=== PATIENT | female | born 1970 | race Caucasian/White ===

== ENCOUNTER 2016-11-18 11:56 | Outpatient (CLI) | payer OTHER ==
[~2016-11-18] VITALS: Ht 180.3 cm; Wt 97.5 kg
[~2016-11-18 11:56] MED LIST: /CLOT10TR TOP; AFRI0.0511; ALBU83IN INH; BETAMETHASONE TOP; FIBE625T PO; FLON0.054; LISI2.5T3 PO; MIRA33504 PO; PRED10TA2 OR; REMICADE IV; RIBO100C PO; SING4GRA PO; VITA1TAB27 PO; ZYRT10CA PO
[2016-11-18] MEDS ORDERED: NS 1,000 ML IV SCH (12:15)
[2016-11-18] MEDS ORDERED: diphenhydrAMINE 25 MG CAP PO ONE (12:15)
[2016-11-18] MEDS ORDERED: inFLIXimab INJECTION 500 MG in NS 200 ML IV ONE (12:30)
== END 2016-11-18 14:55 | disposition home or self-care (01) ==
LOC: M INFU 11:56
PROVIDERS: ATTEND Internal Medicine Gastroenterology
DX: K50.90 Crohn's disease, unspecified, without complications (principal)
CPT/HCPCS: 96413; 96415; J1745

== ENCOUNTER → 2016-12-19 | Outpatient (CLI) | payer OTHER ==
[~2016-12-19] VITALS: Ht 180.3 cm; Wt 95.7 kg
[~2016-12-19] MED LIST changes: +ALBU17IN INH; +FLON1SPR; +LIDOCAINE 2% INJ 100 MG/5 ML SDV (FOR ANES.) As Ordered ONE; +NS 1,000 ML IV SCH; +PROPOFOL 200 MG/20 ML VIAL As Ordered ONE; +SING10TA32 PO; +VITA100054 PO
--- NOTE | 2016-12-19 14:59 | ROOR ---
Patient Name: Olga Lidia Young Procedure Date: 12/19/2016 2:39 PM Date of : 1970 Age: 46 Room: [id number] Gender: Female Note Status: Finalized Procedure: Colonoscopy Indications: Personal history of Crohn's disease, Severe perianal crohns with history of perianal stenosis/fistula/fissure. doing well on remicade. has constipation Providers: Micheal CHOW MD Referring MD: DAILY RAMIREZ MD Requesting Provider: Medicines: Monitored Anesthesia Care Complications: No immediate complications. Procedure: Pre-Anesthesia Assessment: - The heart rate, respiratory rate, oxygen saturations, blood pressure, adequacy of pulmonary ventilation, and response to care were monitored throughout the procedure. The Colonoscope was introduced through the anus and advanced to 5 cm into the ileum. The colonoscopy was performed without difficulty. The patient tolerated the procedure well. The quality of the bowel preparation was adequate. Findings: The digital rectal exam findings include anal stricture. Pertinent negatives include no palpable rectal lesions. Inflammation characterized by shallow ulcerations was found. The anus was spared. This was mild in severity, and when compared to previous examinations, the findings are in remission. Biopsies were taken with a cold forceps for histology. The exam was otherwise normal throughout the examined colon. The terminal ileum appeared normal. Impression: - Mild anal fibrotic stenosis found on digital rectal exam. - Small circumferential shallow erosion at anal canal seen best in retroflexed view. - Overall essentially quiescent Crohn's disease with small area of Inflammation/erosion was found. This was mild in severity. The findings are in remission compared to previous examinations. Biopsied. - The colon is otherwise normal. - The examined portion of the ileum was normal. Recommendation: - Miralax 1 capful (17 grams) in 8 ounces of water PO BID indefinitely. - Continue present medications. Micheal Chow MD Micheal CHOW MD 12/19/2016 2:59:24 PM This report has been signed electronically. Number of Addenda: 0 Note Initiated On: 12/19/2016 2:39 PM Estimated Blood Loss: Estimated blood loss: none.
[2016-12-19 15:20] VITALS: BP 156/85
== END | disposition home or self-care (01) ==
LOC: M OPP 12:20
PROVIDERS: ATTEND Internal Medicine Gastroenterology
DX: K50.918 Crohn's disease, unspecified, with other complication (principal); K62.4 Stenosis of anus and rectum; K62.6 Ulcer of anus and rectum; K59.00 Constipation, unspecified; R01.1 Cardiac murmur, unspecified; G43.909 Migraine, unspecified, not intractable, without status migrainosus; J45.909 Unspecified asthma, uncomplicated; Z79.51 Long term (current) use of inhaled steroids; Z79.899 Other long term (current) drug therapy; Z80.9 Family history of malignant neoplasm, unspecified

== ENCOUNTER → 2016-12-30 | Outpatient (REF) | payer OTHER ==
[~2016-12-30] MED LIST changes: -LIDOCAINE 2% INJ 100 MG/5 ML SDV (FOR ANES.) As Ordered ONE; -NS 1,000 ML IV SCH; -PROPOFOL 200 MG/20 ML VIAL As Ordered ONE
== END ==
LOC: M SFHCWAGY 10:34
PROVIDERS: ATTEND Nurse Practitioner Women's Health
DX: Z12.31 Encounter for screening mammogram for malignant neoplasm of breast (principal); Z12.4 Encounter for screening for malignant neoplasm of cervix

== ENCOUNTER → 2016-12-30 | Outpatient (CLI) | payer OTHER ==
--- NOTE | 2016-12-30 11:36 | REPMRS ---
Patient History The patient states she had a clinical breast exam in 12/2016. Family history of prostate cancer in paternal grandfather at age 50 or over and colorectal cancer in paternal cousin at age 35. Digital Woman Screen Mammo: December 30, 2016 - Exam #: [id number] Bilateral CC and MLO view(s) were taken. Technologist: Susana Menezes, Technologist Prior study comparison: January 01, 2016, digital woman screen mammo performed at [facility]. December 28, 2014, digital woman screen mammo performed at [facility]. FINDINGS: The breast tissue is heterogeneously dense. This may lower the sensitivity of mammography. There has been no change in the appearance of the mammogram from the prior studies. There is a moderate amount of residual fibroglandular tissue which is fairly symmetric. There is no interval development of dominant mass, areas of architectural distortion, or clustered microcalcification typical of malignancy. ASSESSMENT: BI-RADS/ACR category 1 mammogram. Negative. Recommendation Routine screening mammogram in 1 year (for women over age 40). This mammogram was interpreted with the aid of an FDA-approved computer-aided dectection system. Electronically Signed By: Binh Humphrey MD 12/30/16 [id number]
== END ==
LOC: M WHC 10:08
PROVIDERS: ATTEND Nurse Practitioner Women's Health
DX: Z12.31 Encounter for screening mammogram for malignant neoplasm of breast (principal)

== ENCOUNTER 2017-01-13 11:21 | Outpatient (CLI) | payer OTHER ==
[~2017-01-13] VITALS: Ht 180.3 cm; Wt 97.5 kg
[~2017-01-13 11:21] MED LIST changes: +diphenhydrAMINE 25 MG CAP PO SCH
[2017-01-13] MEDS ORDERED: NS 1,000 ML IV SCH (11:30)
[2017-01-13] MEDS ORDERED: inFLIXimab INJECTION 500 MG in NS 200 ML IV ONE (12:00)
== END 2017-01-13 14:45 | disposition home or self-care (01) ==
LOC: M INFU 11:21
PROVIDERS: ATTEND Internal Medicine Gastroenterology
DX: K50.90 Crohn's disease, unspecified, without complications (principal); J45.909 Unspecified asthma, uncomplicated; Z79.899 Other long term (current) drug therapy
CPT/HCPCS: 96413; 96415; J1745

== ENCOUNTER 2017-03-13 11:45 | Outpatient (CLI) | payer OTHER ==
[2017-03-13] MEDS ORDERED: NS 1,000 ML IV SCH (12:15)
[2017-03-13] MEDS ORDERED: inFLIXimab INJECTION 500 MG in NS 200 ML IV ONE (12:30)
== END 2017-03-13 14:45 | disposition home or self-care (01) ==
LOC: M INFU 11:45
PROVIDERS: ATTEND Internal Medicine Gastroenterology
DX: K50.90 Crohn's disease, unspecified, without complications (principal); Z79.899 Other long term (current) drug therapy

== ENCOUNTER 2017-05-05 11:39 | Outpatient (CLI) | payer OTHER ==
[~2017-05-05] VITALS: Ht 180.3 cm; Wt 97.0 kg
[2017-05-05] MEDS ORDERED: NS 1,000 ML IV SCH (12:00)
[2017-05-05] MEDS ORDERED: inFLIXimab INJECTION 500 MG in NS 200 ML IV ONE (13:00)
== END 2017-05-05 14:45 | disposition home or self-care (01) ==
LOC: M INFU 11:39
PROVIDERS: ATTEND Internal Medicine Gastroenterology
DX: K50.90 Crohn's disease, unspecified, without complications (principal); Z79.899 Other long term (current) drug therapy

== ENCOUNTER 2017-07-14 11:46 | Outpatient (CLI) | payer OTHER ==
[~2017-07-14] VITALS: Ht 180.3 cm; Wt 97.0 kg
[~2017-07-14 11:46] MED LIST changes: +NS 1,000 ML IV SCH; +diphenhydrAMINE 25 MG CAP PO ONE; -diphenhydrAMINE 25 MG CAP PO SCH; +inFLIXimab INJECTION 500 MG in NS 200 ML IV ONE
[2017-07-14] MEDS ORDERED: inFLIXimab INJECTION 500 MG in NS 200 ML IV ONE (12:00)
[2017-07-14] MEDS ORDERED: diphenhydrAMINE 25 MG CAP PO ONE (12:00)
[2017-07-14] MEDS ORDERED: NS 1,000 ML IV SCH (12:00)
== END 2017-07-14 14:30 | disposition home or self-care (01) ==
LOC: M INFU 11:46
PROVIDERS: ATTEND Internal Medicine Gastroenterology
DX: K50.90 Crohn's disease, unspecified, without complications (principal); Z79.899 Other long term (current) drug therapy
CPT/HCPCS: 96413; 96415; J1745

== ENCOUNTER 2017-09-08 07:14 | Outpatient (CLI) | payer OTHER ==
[~2017-09-08] VITALS: Ht 180.3 cm; Wt 97.0 kg
[~2017-09-08 07:14] MED LIST changes: -NS 1,000 ML IV SCH; -diphenhydrAMINE 25 MG CAP PO ONE; -inFLIXimab INJECTION 500 MG in NS 200 ML IV ONE
[2017-09-08] MEDS ORDERED: NS 1,000 ML IV SCH (08:00)
[2017-09-08] MEDS ORDERED: inFLIXimab INJECTION 500 MG in NS 200 ML IV ONE (08:00)
[2017-09-08] MEDS ORDERED: diphenhydrAMINE 25 MG CAP PO ONE (08:00)
== END 2017-09-08 11:00 | disposition home or self-care (01) ==
LOC: M INFU 07:14
PROVIDERS: ATTEND Internal Medicine Gastroenterology
DX: K50.90 Crohn's disease, unspecified, without complications (principal); Z79.899 Other long term (current) drug therapy
CPT/HCPCS: 96413; 96415; J1745

== ENCOUNTER 2017-11-03 11:38 | Outpatient (CLI) | payer OTHER ==
[2017-11-03] MEDS: NS 1,000 ML IV (12:00)
[2017-11-03] MEDS: diphenhydrAMINE 25 MG CAP PO (12:00)
[2017-11-03] MEDS: inFLIXimab INJECTION 500 MG in NS 200 ML IV (12:19)
== END 2017-11-03 14:45 | disposition home or self-care (01) ==
LOC: M INFU 11:38
DX: K50.90 Crohn's disease, unspecified, without complications (principal); Z79.899 Other long term (current) drug therapy
CPT/HCPCS: 96413

== ENCOUNTER → 2017-11-27 | Outpatient (REF) | payer OTHER | LOC: M SFHCPLAZ 13:47 | DX: R73.03 Prediabetes (principal); E78.2 Mixed hyperlipidemia; I10 Essential (primary) hypertension ==

== ENCOUNTER → 2017-11-29 | Outpatient (CLI) | payer OTHER ==
[2017-11-29 12:06] LABS: ANION GAP 11 MEQ/L (8-16); BLOOD UREA NITROGEN 16 MG/DL (7-18); CALCIUM LEVEL 8.8 MG/DL (8.5-10.1); CARBON DIOXIDE LEVEL 27 MEQ/L (21-32); CHLORIDE LEVEL 103 MEQ/L (98-107); CHOLESTEROL LEVEL 229 MG/DL (<200); CHOLESTEROL RISK RATIO 2.862 (<5); CREATININE FOR GFR 0.85 MG/DL (0.55-1.30); GLOMERULAR FILTRATION RATE > 60.0 (>58); GLUCOSE, FASTING 105 MG/DL (70-100); HDL CHOLESTEROL 80 MG/DL (>40); LDL CHOLESTEROL 128.4 MG/DL (<100); NON-HDL-C 149 MG/DL; POTASSIUM SERUM 4.4 MEQ/L (3.5-5.1); SODIUM LEVEL 141 MEQ/L (136-145); TRIGLYCERIDES LEVEL 103 MG/DL (<150)
[2017-11-29 12:17] LABS: ESTIMATED AVERAGE GLUCOSE 123 MG/DL (60-110); HEMOGLOBIN A1c 5.9 %
== END ==
LOC: M WUC 08:05
DX: R73.03 Prediabetes (principal); E78.2 Mixed hyperlipidemia; I10 Essential (primary) hypertension
CPT/HCPCS: 83036

== ENCOUNTER 2017-12-29 12:09 | Outpatient (CLI) | payer OTHER ==
[2017-12-29] MEDS: ACETAMINOPHEN TAB 650MG DOSE (2X325MG) PO (12:30)
[2017-12-29] MEDS: diphenhydrAMINE 25 MG CAP PO (12:37)
[2017-12-29] MEDS: INFLIXIMAB BIOSIMILAR 500 MG in NS 200 ML IV (12:58)
[2017-12-29] MEDS: NS 1,000 ML IV (12:58)
== END 2017-12-29 15:30 | disposition home or self-care (01) ==
LOC: M INFU 12:09
DX: K50.90 Crohn's disease, unspecified, without complications (principal); J45.909 Unspecified asthma, uncomplicated; Z79.899 Other long term (current) drug therapy
CPT/HCPCS: Q5102

== ENCOUNTER → 2018-01-01 | Outpatient (CLI) | payer OTHER | LOC: M WHC 10:38 | DX: Z12.31 Encounter for screening mammogram for malignant neoplasm of breast (principal) | CPT/HCPCS: 77067 ==

== ENCOUNTER → 2018-01-15 | Outpatient (REF) | payer OTHER ==
[2018-01-15 13:30] LABS: INFLUENZA A AMPLIFICATION NEGATIVE (NEGATIVE); INFLUENZA B AMPLIFICATION NEGATIVE (NEGATIVE)
== END ==
LOC: M LAB REF 12:44
DX: J11.1 Influenza due to unidentified influenza virus with other respiratory manifestations (principal)

== ENCOUNTER 2018-02-23 12:16 | Outpatient (CLI) | payer OTHER ==
[2018-02-23] MEDS: ACETAMINOPHEN TAB 650MG DOSE (2X325MG) PO (12:42)
[2018-02-23] MEDS: diphenhydrAMINE 25 MG CAP PO (12:42)
[2018-02-23] MEDS: FILTER 1.2 MICRON (ADULT TPN/MANNITOL/REMICADE) XX (12:42)
[2018-02-23] MEDS: NS 1,000 ML IV (12:43)
[2018-02-23] MEDS: INFLIXIMAB BIOSIMILAR 500 MG in NS 200 ML IV (13:26)
== END 2018-02-23 15:55 | disposition home or self-care (01) ==
LOC: M INFU 12:16
DX: K50.90 Crohn's disease, unspecified, without complications (principal); J45.909 Unspecified asthma, uncomplicated; Z79.899 Other long term (current) drug therapy
CPT/HCPCS: Q5103

== ENCOUNTER 2018-04-20 12:16 | Outpatient (CLI) | payer OTHER ==
[2018-04-20] MEDS: diphenhydrAMINE 25 MG CAP PO (12:30)
[2018-04-20] MEDS ORDERED: NS 1,000 ML IV (12:30)
[2018-04-20] MEDS ORDERED: FILTER 1.2 MICRON (ADULT TPN/MANNITOL/REMICADE) XX (12:30)
[2018-04-20] MEDS: ACETAMINOPHEN TAB 650MG DOSE (2X325MG) PO (12:30)
[2018-04-20] MEDS: inFLIXimab INJECTION 500 MG in NS 200 ML IV (12:47)
== END 2018-04-20 15:15 | disposition home or self-care (01) ==
LOC: M INFU 12:16
DX: K50.90 Crohn's disease, unspecified, without complications (principal); Z79.899 Other long term (current) drug therapy
CPT/HCPCS: J1745

== ENCOUNTER 2018-06-16 11:58 | Outpatient (CLI) | payer OTHER ==
[2018-06-16] MEDS ORDERED: FILTER 1.2 MICRON (ADULT TPN/MANNITOL/REMICADE) XX (12:15)
[2018-06-16] MEDS: ACETAMINOPHEN TAB 650MG DOSE (2X325MG) PO (12:15)
[2018-06-16] MEDS: NS 1,000 ML IV (12:15)
[2018-06-16] MEDS: diphenhydrAMINE 25 MG CAP PO (12:34)
[2018-06-16] MEDS: inFLIXimab INJECTION 500 MG in NS 200 ML IV (12:37)
== END 2018-06-16 15:00 | disposition home or self-care (01) ==
LOC: M INFU 11:58
DX: K50.90 Crohn's disease, unspecified, without complications (principal)
CPT/HCPCS: J1745

== ENCOUNTER 2018-10-09 06:56 | Outpatient (CLI) | payer OTHER ==
[2018-10-09] VITALS (8 sets, daily range): BP systolic 123–167; BP diastolic 76–100
[~2018-10-09] VITALS: Ht 175.3 cm; Wt 103.0 kg
[~2018-10-09 06:56] MED LIST changes: -LISI2.5T3 PO; +LISI2.5T5 PO
[2018-10-09] MEDS ORDERED: FILTER 1.2 MICRON (ADULT TPN/MANNITOL/REMICADE) XX ONE (08:00)
[2018-10-09] MEDS ORDERED: ACETAMINOPHEN 650MG PO PRIOR TO INFUSION PO ONE (08:00)
[2018-10-09] MEDS ORDERED: diphenhydrAMINE 25MG PO PRIOR TO INFUSION PO ONE (08:00)
[2018-10-09] MEDS ORDERED: NS 1,000 ML IV SCH (08:00)
[2018-10-09] MEDS ORDERED: inFLIXimab INJECTION 600 MG in NS 190 ML IV ONE (08:00)
== END 2018-10-09 10:25 | disposition home or self-care (01) ==
LOC: M INFU 06:56
PROVIDERS: ATTEND Internal Medicine Gastroenterology
DX: K50.90 Crohn's disease, unspecified, without complications (principal); J45.909 Unspecified asthma, uncomplicated
CPT/HCPCS: 96413; 96415; J1745

== ENCOUNTER 2019-05-17 07:21 | Outpatient (CLI) | payer OTHER ==
[~2019-05-17] VITALS: Ht 171.4 cm; Wt 103.0 kg
[~2019-05-17 07:21] MED LIST changes: +LISI-1046 PO; -LISI2.5T5 PO
[2019-05-17 07:30] VITALS: BP 148/87
[2019-05-17] MEDS ORDERED: diphenhydrAMINE 25MG PO PRIOR TO INFUSION PO ONE (08:00)
[2019-05-17] MEDS ORDERED: ACETAMINOPHEN 650MG PO PRIOR TO INFUSION PO ONE (08:00)
[2019-05-17] MEDS ORDERED: FILTER 1.2 MICRON (ADULT TPN/MANNITOL/REMICADE) XX ONE (08:00)
[2019-05-17] MEDS ORDERED: NS 1,000 ML IV SCH (08:00)
[2019-05-17] MEDS ORDERED: inFLIXimab INJECTION 600 MG in NS 190 ML IV ONE (08:00)
[2019-05-17 09:25] VITALS: BP 156/89
[2019-05-17 09:40] VITALS: BP 168/87
== END 2019-05-17 09:40 | disposition home or self-care (01) ==
LOC: M INFU 07:21
PROVIDERS: ATTEND Internal Medicine Gastroenterology
DX: K50.90 Crohn's disease, unspecified, without complications (principal)
CPT/HCPCS: 96413; J1745

== ENCOUNTER → 2019-06-03 | Outpatient (REF) | payer OTHER ==
[~2019-06-03] MED LIST changes: +FISH1000 PO
== END ==
LOC: M SFHCPLAZ 15:32
DX: R73.03 Prediabetes (principal); E78.2 Mixed hyperlipidemia

== ENCOUNTER → 2019-06-09 | Outpatient (CLI) | payer OTHER ==
[~2019-06-09] MED LIST changes: -FISH1000 PO
[2019-06-09 08:15] LABS: CHOLESTEROL RISK RATIO 3.12 (<5)
[2019-06-09 08:23] LABS: HEMOGLOBIN A1c 5.9 %
== END ==
LOC: M LAB 07:13
PROVIDERS: ATTEND Internal Medicine
DX: R73.03 Prediabetes (principal)

== ENCOUNTER → 2019-07-06 | Outpatient (REF) | payer OTHER ==
[2019-07-06 13:09] LABS: INFLUENZA A AMPLIFICATION NEGATIVE (NEGATIVE); INFLUENZA B AMPLIFICATION NEGATIVE (NEGATIVE)
== END ==
LOC: M LAB REF 11:22
PROVIDERS: ATTEND Physician Assistant Medical
DX: J11.1 Influenza due to unidentified influenza virus with other respiratory manifestations (principal)

== ENCOUNTER 2019-11-01 07:16 | Outpatient (CLI) | payer OTHER ==
[~2019-11-01] VITALS: Ht 170.2 cm; Wt 101.1 kg
[2019-11-01 07:20] VITALS: BP 134/86
[2019-11-01] MEDS ORDERED: inFLIXimab INJECTION 600 MG in NS 190 ML IV ONE (07:30)
[2019-11-01] MEDS ORDERED: ACETAMINOPHEN 650MG PO PRIOR TO INFUSION PO ONE (07:30)
[2019-11-01] MEDS ORDERED: NS 1,000 ML IV SCH (07:30)
[2019-11-01] MEDS ORDERED: FISH1000 PO (07:49)
[2019-11-01] MEDS ORDERED: diphenhydrAMINE 25 MG CAP PO ONE (08:30)
[2019-11-01 10:15] VITALS: BP 137/93
[2019-11-01 10:54] LABS: HEPATITIS B SURFACE ANTIBODY NEGATIVE (POSITIVE); HEPATITIS B SURFACE ANTIGEN NEGATIVE (NEGATIVE)
== END 2019-11-01 10:15 | disposition home or self-care (01) ==
LOC: M INFU 07:16
PROVIDERS: ATTEND Internal Medicine Gastroenterology
DX: K50.90 Crohn's disease, unspecified, without complications (principal)
CPT/HCPCS: 86480; 86706; 87340; 96413; J1745

== ENCOUNTER 2019-12-27 07:17 | Outpatient (CLI) | payer OTHER ==
[~2019-12-27] VITALS: Ht 170.2 cm; Wt 103.0 kg
[~2019-12-27 07:17] MED LIST changes: +FISH1000 PO
[2019-12-27] MEDS ORDERED: diphenhydrAMINE 25MG PO PRIOR TO INFUSION PO ONE (08:00)
[2019-12-27] MEDS ORDERED: ACETAMINOPHEN 650MG PO PRIOR TO INFUSION PO ONE (08:00)
[2019-12-27] MEDS ORDERED: INFLIXIMAB BIOSIMILAR 500 MG in NS 200 ML IV ONE (08:00)
[2019-12-27] MEDS ORDERED: NS 1,000 ML IV SCH (08:00)
[2019-12-27 09:05] VITALS: BP 147/90
== END 2019-12-27 09:30 | disposition home or self-care (01) ==
LOC: M INFU 07:17
PROVIDERS: ATTEND Internal Medicine Gastroenterology
DX: K50.90 Crohn's disease, unspecified, without complications (principal)
CPT/HCPCS: 96413; Q5103

== ENCOUNTER 2020-04-17 07:16 | Outpatient (CLI) | payer OTHER ==
[~2020-04-17] VITALS: Ht 170.2 cm; Wt 103.0 kg
[~2020-04-17 07:16] MED LIST changes: -LISI-1046 PO; +LISI2.5T2 PO
[2020-04-17 07:20] VITALS: BP 156/79
[2020-04-17] MEDS ORDERED: diphenhydrAMINE 25MG CAP As Ordered ONE (07:47)
[2020-04-17 08:00] VITALS: BP 156/79
[2020-04-17] MEDS ORDERED: ACETAMINOPHEN 650MG PO PRIOR TO INFUSION PO ONE ×2 (08:00→10:00)
[2020-04-17] MEDS ORDERED: diphenhydrAMINE 25MG PO PRIOR TO INFUSION PO ONE ×2 (08:00→10:00)
[2020-04-17] MEDS ORDERED: NS 1,000 ML IV SCH ×2 (08:00→10:00)
[2020-04-17] MEDS ORDERED: INFLIXIMAB BIOSIMILAR 500 MG in NS 200 ML IV ONE (08:00)
[2020-04-17 08:20] VITALS: BP 159/74
[2020-04-17 09:15] VITALS: BP 166/83
[2020-04-17 09:25] VITALS: BP 166/83
== END 2020-04-17 09:20 | disposition home or self-care (01) ==
LOC: M INFU 07:16
PROVIDERS: ATTEND Internal Medicine Gastroenterology
DX: K50.90 Crohn's disease, unspecified, without complications (principal)
CPT/HCPCS: 96413; Q5103

== ENCOUNTER → 2020-04-25 | Outpatient (CLI) | payer OTHER ==
--- NOTE | 2020-04-25 09:21 | REPMRS ---
Patient History The patient states she has not had a clinical breast exam in over a year. Family history of prostate cancer at age 50 or over in paternal grandfather, pancreatic cancer at age 35 in paternal cousin. 3D TOMOSYNTHESIS WAS PERFORMED. [facility] lifetime risk for breast cancer is 9.4%. [employer]. Digital Woman Screen Mammo: April 25, 2020 - Exam #: [id number] Bilateral CC and MLO view(s) were taken. Technologist: Valerie Velazquez, Technologist Prior study comparison: January 06, 2019, bilateral digital woman screen mammo performed at [facility]. January 01, 2018, digital woman screen mammo performed at [facility]. FINDINGS: The breast tissue is heterogeneously dense. This may lower the sensitivity of mammography. There has been no change in the appearance of the mammogram from the prior studies. There is a moderate amount of residual fibroglandular tissue which is fairly symmetric. There is no interval development of dominant mass, areas of architectural distortion, or clustered microcalcification typical of malignancy. Assessment: BI-RADS/ACR category 1 mammogram. Negative Mammogram. Recommendation Routine screening mammogram in 1 year (for women over age 40). This mammogram was interpreted with the aid of an FDA-approved computer-aided dectection system. Electronically Signed By: Binh Humphrey MD 04/25/20 [id number]
== END ==
LOC: M WHC 07:10
PROVIDERS: ATTEND Nurse Practitioner Women's Health
DX: Z12.31 Encounter for screening mammogram for malignant neoplasm of breast (principal)

== ENCOUNTER 2020-06-12 07:10 | Outpatient (CLI) | payer OTHER ==
[~2020-06-12] VITALS: Ht 170.2 cm; Wt 103.0 kg
[2020-06-12 07:18] VITALS: BP 153/100
[2020-06-12] MEDS ORDERED: INFLIXIMAB BIOSIMILAR 500 MG in NS 200 ML IV ONE (07:30)
[2020-06-12] MEDS ORDERED: diphenhydrAMINE 25MG PO PRIOR TO INFUSION PO ONE (07:30)
[2020-06-12] MEDS ORDERED: ACETAMINOPHEN 650MG PO PRIOR TO INFUSION PO ONE (07:30)
[2020-06-12] MEDS ORDERED: NS 1,000 ML IV SCH (07:30)
[2020-06-12] MEDS ORDERED: diphenhydrAMINE 25MG CAP As Ordered ONE (07:31)
[2020-06-12 08:00] VITALS: BP 142/99
[2020-06-12 08:45] VITALS: BP 153/98
== END 2020-06-12 08:55 | disposition home or self-care (01) ==
LOC: M INFU 07:10
PROVIDERS: ATTEND Internal Medicine Gastroenterology
DX: K50.90 Crohn's disease, unspecified, without complications (principal)
CPT/HCPCS: 96413; Q5103

== ENCOUNTER → 2020-08-06 | Outpatient (CLI) | payer OTHER ==
--- NOTE | 2020-08-06 10:20 | REP ---
INDICATION: ABD PAIN COMPARISON: None. TECHNIQUE: Upright view of the chest with supine and upright views of the abdomen and pelvis. FINDINGS: Frontal upright view of the chest demonstrates no acute cardiopulmonary process or free air below the diaphragm to suspect pneumoperitoneum. Supine and upright views of the abdomen and pelvis demonstrate nonspecific bowel gas pattern without obstruction or perforation. No organomegaly. No abnormal calcifications. Skeletal structures normal for age. A 12mm radiodense foreign body overlies the left hemipelvis which may be external to the patient and related to clothing. Correlation is recommended. IMPRESSION: Nonspecific bowel gas pattern. Questionable foreign body overlying the left hemipelvis as above. <Electronically signed by Nasir Sanchez > 08/06/20 [id number]
== END ==
LOC: M RAD 09:54
PROVIDERS: ATTEND Physician Assistant Medical
DX: R10.9 Unspecified abdominal pain (principal); Z87.19 Personal history of other diseases of the digestive system; R93.3 Abnormal findings on diagnostic imaging of other parts of digestive tract

== ENCOUNTER 2020-08-14 10:54 | Outpatient (CLI) | payer OTHER ==
[~2020-08-14] VITALS: Ht 180.3 cm; Wt 104.7 kg
[~2020-08-14 10:54] MED LIST changes: +ACETAMINOPHEN 650MG PO PRIOR TO INFUSION PO ONE; +INFLIXIMAB BIOSIMILAR 600 MG in NS 190 ML IV ONE; +NS 1,000 ML IV SCH; +diphenhydrAMINE 25MG PO PRIOR TO INFUSION PO ONE
[2020-08-14 10:55] VITALS: BP 182/94
[2020-08-14] MEDS ORDERED: ACETAMINOPHEN 650MG PO PRIOR TO INFUSION PO ONE (11:00)
[2020-08-14] MEDS ORDERED: NS 1,000 ML IV SCH (11:00)
[2020-08-14] MEDS ORDERED: diphenhydrAMINE 25MG PO PRIOR TO INFUSION PO ONE (11:00)
[2020-08-14] MEDS ORDERED: INFLIXIMAB BIOSIMILAR 600 MG in NS 190 ML IV ONE (11:00)
[2020-08-14 11:25] VITALS: BP 182/98
[2020-08-14 11:50] VITALS: BP 157/93
[2020-08-14 12:35] VITALS: BP 145/84
== END 2020-08-14 12:45 | disposition home or self-care (01) ==
LOC: M INFU 10:54
PROVIDERS: ATTEND Internal Medicine Gastroenterology
DX: K50.90 Crohn's disease, unspecified, without complications (principal)
CPT/HCPCS: 96413; Q5103

== ENCOUNTER → 2020-09-16 | Outpatient (CLI) | payer OTHER ==
[~2020-09-16] MED LIST changes: -ACETAMINOPHEN 650MG PO PRIOR TO INFUSION PO ONE; -INFLIXIMAB BIOSIMILAR 600 MG in NS 190 ML IV ONE; -NS 1,000 ML IV SCH; -diphenhydrAMINE 25MG PO PRIOR TO INFUSION PO ONE
[2020-09-16 10:04] LABS: CHOLESTEROL RISK RATIO 2.926 (<5)
[2020-09-18 10:23] LABS: TOTAL 25(OH) VITAMIN D 28.4 NG/ML (30.0-100.0)
== END ==
LOC: M LAB 08:30
PROVIDERS: ATTEND Internal Medicine
DX: R73.03 Prediabetes (principal); E78.5 Hyperlipidemia, unspecified; E55.9 Vitamin D deficiency, unspecified

== ENCOUNTER 2020-10-09 10:36 | Outpatient (CLI) | payer OTHER ==
[~2020-10-09] VITALS: Ht 180.3 cm; Wt 104.7 kg
[2020-10-09 10:45] VITALS: BP_SYST 150; BP_SYST 158; BP_DIAS 96
[2020-10-09] MEDS ORDERED: NS 1,000 ML IV SCH (11:00)
[2020-10-09] MEDS ORDERED: diphenhydrAMINE 25MG PO PRIOR TO INFUSION PO ONE (11:00)
[2020-10-09] MEDS ORDERED: INFLIXIMAB BIOSIMILAR 600 MG in NS 190 ML IV ONE (11:00)
[2020-10-09] MEDS ORDERED: ACETAMINOPHEN 650MG PO PRIOR TO INFUSION PO ONE (11:00)
[2020-10-09 11:15] VITALS: BP 150/88
[2020-10-09 12:15] VITALS: BP 156/84
[2020-10-09 12:32] VITALS: BP 163/97
== END 2020-10-09 12:35 | disposition home or self-care (01) ==
LOC: M INFU 10:36
PROVIDERS: ATTEND Internal Medicine Gastroenterology
DX: K50.90 Crohn's disease, unspecified, without complications (principal)
CPT/HCPCS: 96413; Q5103

== ENCOUNTER 2020-12-04 10:43 | Outpatient (CLI) | payer OTHER ==
[~2020-12-04] VITALS: Ht 180.3 cm; Wt 104.7 kg
[2020-12-04] MEDS ORDERED: diphenhydrAMINE 25MG PO PRIOR TO INFUSION PO ONE (11:00)
[2020-12-04] MEDS ORDERED: NS 1,000 ML IV SCH (11:00)
[2020-12-04] MEDS ORDERED: INFLIXIMAB BIOSIMILAR 600 MG in NS 190 ML IV ONE (11:00)
[2020-12-04] MEDS ORDERED: ACETAMINOPHEN 650MG PO PRIOR TO INFUSION PO ONE (11:00)
[2020-12-04 11:17] VITALS: BP 139/100
[2020-12-04 11:37] VITALS: BP 150/81
[2020-12-04 12:20] VITALS: BP 160/95
== END 2020-12-04 12:40 | disposition home or self-care (01) ==
LOC: M INFU 10:43
PROVIDERS: ATTEND Internal Medicine Gastroenterology
DX: K50.90 Crohn's disease, unspecified, without complications (principal)
CPT/HCPCS: 96365; Q5103

== ENCOUNTER → 2020-12-06 | Outpatient (REF) | payer OTHER | LOC: M LAB REF 08:44 | PROVIDERS: ATTEND Physician Assistant | DX: M79.3 Panniculitis, unspecified (principal) ==

== ENCOUNTER 2021-01-29 10:47 | Outpatient (CLI) | payer OTHER ==
[~2021-01-29] VITALS: Ht 182.9 cm; Wt 105.0 kg
[2021-01-29 11:00] VITALS: BP 170/80
[2021-01-29] MEDS ORDERED: ACETAMINOPHEN 650MG PO PRIOR TO INFUSION PO ONE (11:00)
[2021-01-29] MEDS ORDERED: diphenhydrAMINE 25MG PO PRIOR TO INFUSION PO ONE (11:00)
[2021-01-29] MEDS ORDERED: NS 1,000 ML IV SCH (11:00)
[2021-01-29] MEDS ORDERED: INFLIXIMAB BIOSIMILAR 600 MG in NS 190 ML IV ONE (11:00)
[2021-01-29 11:45] VITALS: BP 143/100
[2021-01-29 12:30] VITALS: BP 153/92
== END 2021-01-29 12:38 | disposition home or self-care (01) ==
LOC: M INFU 10:47
PROVIDERS: ATTEND Internal Medicine Gastroenterology
DX: K50.90 Crohn's disease, unspecified, without complications (principal)
CPT/HCPCS: 96365; Q5103

== ENCOUNTER → 2021-02-05 | Outpatient (CLI) | payer OTHER ==
[2021-02-05 13:50] LABS: HEMOGLOBIN A1c 5.7 %
== END ==
LOC: M WUC 09:14
PROVIDERS: ATTEND Internal Medicine
DX: R73.03 Prediabetes (principal)

== ENCOUNTER 2021-03-26 10:48 | Outpatient (CLI) | payer OTHER ==
[~2021-03-26] VITALS: Ht 180.3 cm; Wt 100.0 kg
[2021-03-26 10:50] VITALS: BP 164/89
[2021-03-26] MEDS ORDERED: diphenhydrAMINE 25MG PO PRIOR TO INFUSION PO ONE (11:00)
[2021-03-26] MEDS ORDERED: NS 1,000 ML IV SCH (11:00)
[2021-03-26] MEDS ORDERED: ACETAMINOPHEN 650MG PO PRIOR TO INFUSION PO ONE (11:00)
[2021-03-26] MEDS ORDERED: INFLIXIMAB BIOSIMILAR 600 MG in NS 190 ML IV ONE (11:00)
[2021-03-26 11:30] VITALS: BP 175/97
[2021-03-26 12:26] VITALS: BP 157/87
== END 2021-03-26 12:26 | disposition home or self-care (01) ==
LOC: M INFU 10:48
PROVIDERS: ATTEND Internal Medicine Gastroenterology
DX: K50.90 Crohn's disease, unspecified, without complications (principal)
CPT/HCPCS: 96413; Q5103

== ENCOUNTER → 2021-04-26 | Outpatient (REF) | payer OTHER | LOC: M SFHCWAGY 10:13 | PROVIDERS: ATTEND Nurse Practitioner Women's Health | DX: Z12.4 Encounter for screening for malignant neoplasm of cervix (principal) ==

== ENCOUNTER → 2021-04-26 | Outpatient (CLI) | payer OTHER ==
--- NOTE | 2021-04-26 08:57 | REPMRS ---
Patient History The patient states she had a clinical breast exam in April 2020. Family history of prostate cancer at age 50 or over in paternal grandfather, pancreatic cancer at age 35 in paternal cousin. Patient states no breast complaints today. Patient has signed MRS History Sheet. Digital Woman Screen Mammo: April 26, 2021 - Exam #: [id number] Bilateral CC and MLO view(s) were taken. Technologist: Sweta Hubbard, Technologist Prior study comparison: April 25, 2020, bilateral digital woman screen mammo performed at [facility]. January 06, 2019, bilateral digital woman screen mammo performed at [facility]. FINDINGS: The breast tissue is heterogeneously dense. This may lower the sensitivity of mammography. Screening. Digital screening (2D) mammography was performed bilaterally in the CC and MLO projections. Additionally, breast tomosynthesis (3D mammography) was performed bilaterally in the CC and MLO projections. Todays exam was compared to the prior exam/exams. By history, the patient has no complaints of a palpable breast abnormality or other significant breast complaints. The breasts are unchanged in size and shape.Once again, dense heterogenous fibroglandular elements are seen bilaterally in a stable appearing pattern but to such a degree that the sensitivity of the mammogram in detecting cancer is decreased. There are no chandler-soft tissue densities or spiculated masses. There is no internal architectural distortion.Once again, stable benign appearing calcifications are seen. There are no suspicious chandler-calcific clusters. Skin thickening or nipple retraction is not present. IMPRESSION: BI-RADS Category 2- Benign Findings. There is no evidence of malignant alteration of the breasts. Followup examination recommended in one year. The Volpara volumetric breast density category is C, the breasts are heterogenously dense which may obscure small masses. This mammogram was read with the assistance of [employer],an FDA approved computer aided detection system for mammography. The lifetime Tyrer-Cuzick score is 9.2 % Due to the density of the breasts or Tyrer Cuzick score of 20% or greater, MRI/whole breast screening ultrasound is warranted. Negative x-ray reports should not delay surgical consultation if a dominant or clinically suspicious mass is present. Not all breast cancers can be identified by mammography. Therefore, we recommend that you continue to perform regular breast self-examination and physical examination and then promptly contact your physician of any concerns or changes. Adenosis and dense breasts may obscure an underlying neoplasm. Assessment: BI-RADS/ACR category 2 mammogram. Benign Findings. Recommendation Routine screening mammogram of both breasts in 1 year. Electronically Signed By: Jeramie Chicas DO 04/26/21 [id number]
== END ==
LOC: M WHC 07:45
PROVIDERS: ATTEND Nurse Practitioner Women's Health
DX: Z12.31 Encounter for screening mammogram for malignant neoplasm of breast (principal)

== ENCOUNTER 2021-05-21 10:55 | Outpatient (CLI) | payer OTHER ==
[~2021-05-21] VITALS: Ht 180.3 cm; Wt 100.0 kg
[2021-05-21 10:55] VITALS: BP 160/80
[~2021-05-21 10:55] MED LIST changes: -LISI2.5T2 PO; +LISI2.5T9 PO
[2021-05-21] MEDS ORDERED: diphenhydrAMINE 25MG PO PRIOR TO INFUSION PO ONE (11:00)
[2021-05-21] MEDS ORDERED: INFLIXIMAB BIOSIMILAR 600 MG in NS 190 ML IV ONE (11:00)
[2021-05-21] MEDS ORDERED: NS 1,000 ML IV SCH (11:00)
[2021-05-21] MEDS: ACETAMINOPHEN 650MG PO PRIOR TO INFUSION PO ONE ×2 (11:17→11:49)
[2021-05-21 12:00] VITALS: BP 158/88
[2021-05-21 12:50] VITALS: BP 138/74
== END 2021-05-21 13:00 | disposition home or self-care (01) ==
LOC: M INFU 10:55
PROVIDERS: ATTEND Internal Medicine Gastroenterology
DX: K50.90 Crohn's disease, unspecified, without complications (principal)
CPT/HCPCS: 96365; Q5103

== ENCOUNTER → 2021-06-27 | Outpatient (REF) | payer OTHER | LOC: M SFHCPLAZ 11:25 | PROVIDERS: ATTEND Family Medicine | DX: Z00.00 Encounter for general adult medical examination without abnormal findings (principal); R53.83 Other fatigue; R73.03 Prediabetes; Z53.9 Procedure and treatment not carried out, unspecified reason ==

== ENCOUNTER → 2021-06-28 | Outpatient (CLI) | payer OTHER ==
[2021-06-28 17:38] LABS: HEMATOCRIT 45.9 % (36.0-47.0); HEMOGLOBIN 15.8 g/dl (12.0-15.5); MEAN CORPUSCULAR HEMOGLOBIN 30.8 pg (27.0-33.0); MEAN CORPUSCULAR HGB CONC 34.4 g/dl (32.0-36.5); MEAN CORPUSCULAR VOLUME 89.5 fl (80.0-96.0); PLATELET COUNT, AUTOMATED 234 10^3/uL (150-450); RED BLOOD COUNT 5.13 10^6/uL (4.00-5.40)
[2021-06-28 17:55] LABS: HEMOGLOBIN A1c 5.9 %
[2021-06-28 19:52] LABS: BLOOD UREA NITROGEN 14 MG/DL (7-18); CALCIUM LEVEL 9.7 MG/DL (8.5-10.1); CARBON DIOXIDE LEVEL 29 MEQ/L (21-32); CHLORIDE LEVEL 104 MEQ/L (98-107); CHOLESTEROL LEVEL 262 MG/DL (<200); CHOLESTEROL RISK RATIO 3.275 (<5); CREATININE FOR GFR 0.95 MG/DL (0.55-1.30); FREE T4 1.11 NG/DL (0.76-1.46); GLOMERULAR FILTRATION RATE > 60.0 (>51); GLUCOSE, FASTING 124 MG/DL (70-100); HDL CHOLESTEROL 80 MG/DL (>40); LDL CHOLESTEROL 158 MG/DL (<100); NON-HDL-C 182 MG/DL; POTASSIUM SERUM 4.1 MEQ/L (3.5-5.1); SODIUM LEVEL 139 MEQ/L (136-145); TOTAL 25(OH) VITAMIN D 26.4 NG/ML (30.0-100.0); TRIGLYCERIDES LEVEL 121 MG/DL (<150); VITAMIN B12 LEVEL 542 PG/ML (247-911)
== END ==
LOC: M PLALAB 15:23
PROVIDERS: ATTEND Student in an Organized Health Care Education/Training Program
DX: Z00.00 Encounter for general adult medical examination without abnormal findings (principal); R73.03 Prediabetes; R53.83 Other fatigue

== ENCOUNTER 2021-07-16 10:46 | Outpatient (CLI) | payer OTHER ==
[~2021-07-16] VITALS: Ht 180.3 cm; Wt 105.0 kg
[2021-07-16 10:58] VITALS: BP 166/100
[2021-07-16] MEDS ORDERED: diphenhydrAMINE 25MG PO PRIOR TO INFUSION PO ONE (11:00)
[2021-07-16] MEDS ORDERED: NS 1,000 ML IV SCH (11:00)
[2021-07-16] MEDS ORDERED: ACETAMINOPHEN 650MG PO PRIOR TO INFUSION PO ONE (11:00)
[2021-07-16] MEDS ORDERED: INFLIXIMAB BIOSIMILAR 600 MG in NS 190 ML IV ONE (11:00)
[2021-07-16 13:00] VITALS: BP 157/84
== END 2021-07-16 13:00 | disposition home or self-care (01) ==
LOC: M INFU 10:46
PROVIDERS: ATTEND Internal Medicine Gastroenterology
DX: K50.90 Crohn's disease, unspecified, without complications (principal)
CPT/HCPCS: 96365; Q5103

== ENCOUNTER 2021-09-10 10:50 | Outpatient (CLI) | payer OTHER ==
[~2021-09-10] VITALS: Ht 180.3 cm; Wt 104.7 kg
[2021-09-10] MEDS ORDERED: INFLIXIMAB BIOSIMILAR 600 MG in NS 190 ML IV ONE (11:00)
[2021-09-10] MEDS ORDERED: inFLIXimab INJECTION 600 MG in NS 190 ML IV ONE (11:00)
[2021-09-10] MEDS ORDERED: NS 1,000 ML IV SCH (11:00)
[2021-09-10] MEDS ORDERED: ACETAMINOPHEN 650MG PO PRIOR TO INFUSION PO ONE (11:00)
[2021-09-10 11:25] VITALS: BP 168/74
[2021-09-10 12:00] VITALS: BP 151/87
[2021-09-10 12:46] VITALS: BP 143/86
== END 2021-09-10 12:50 | disposition home or self-care (01) ==
LOC: M INFU 10:50
PROVIDERS: ATTEND Internal Medicine Gastroenterology
DX: K50.90 Crohn's disease, unspecified, without complications (principal)
CPT/HCPCS: 96365; Q5103

== ENCOUNTER → 2021-12-27 | Outpatient (CLI) | payer OTHER ==
[~2021-12-27] MED LIST changes: +LOSA50TA28 PO
[2021-12-27 17:03] LABS: BLOOD UREA NITROGEN 15 MG/DL (7-18); CALCIUM LEVEL 9.7 MG/DL (8.5-10.1); CARBON DIOXIDE LEVEL 30 MEQ/L (21-32); CHLORIDE LEVEL 104 MEQ/L (98-107); CHOLESTEROL LEVEL 224 MG/DL (<200); CHOLESTEROL RISK RATIO 3.246 (<5); CREATININE FOR GFR 0.79 MG/DL (0.55-1.30); GLOMERULAR FILTRATION RATE > 60.0 (>51); GLUCOSE, FASTING 108 MG/DL (70-100); HDL CHOLESTEROL 69 MG/DL (>40); LDL CHOLESTEROL 135 MG/DL (<100); NON-HDL-C 155 MG/DL; POTASSIUM SERUM 4.7 MEQ/L (3.5-5.1); SODIUM LEVEL 138 MEQ/L (136-145); TRIGLYCERIDES LEVEL 99 MG/DL (<150)
[2021-12-27 18:24] LABS: HEMOGLOBIN A1c 5.8 %
== END ==
LOC: M PLALAB 12:47
PROVIDERS: ATTEND Student in an Organized Health Care Education/Training Program
DX: M25.571 Pain in right ankle and joints of right foot (principal)

== ENCOUNTER 2021-12-31 10:44 | Outpatient (CLI) | payer OTHER ==
[~2021-12-31] VITALS: Ht 180.3 cm; Wt 104.0 kg
[~2021-12-31 10:44] MED LIST changes: -LOSA50TA28 PO
[2021-12-31 10:50] VITALS: BP 145/91
[2021-12-31] MEDS ORDERED: LOSA50TA28 PO (10:53)
[2021-12-31] MEDS ORDERED: INFLIXIMAB BIOSIMILAR 600 MG in NS 190 ML IV ONE (11:00)
[2021-12-31] MEDS ORDERED: NS 1,000 ML IV SCH (11:00)
[2021-12-31] MEDS ORDERED: ACETAMINOPHEN 650MG PO PRIOR TO INFUSION PO ONE (11:00)
[2021-12-31 11:45] VITALS: BP 141/94
[2021-12-31 12:50] VITALS: BP 155/96
== END 2021-12-31 12:50 | disposition home or self-care (01) ==
LOC: M INFU 10:44
PROVIDERS: ATTEND Internal Medicine Gastroenterology
DX: K50.90 Crohn's disease, unspecified, without complications (principal)
CPT/HCPCS: 96413; Q5103

== ENCOUNTER 2022-02-25 10:58 | Outpatient (CLI) | payer OTHER ==
[~2022-02-25] VITALS: Ht 180.3 cm; Wt 102.2 kg
[~2022-02-25 10:58] MED LIST changes: +LOSA50TA28 PO
[2022-02-25] MEDS ORDERED: ACETAMINOPHEN 650MG PO PRIOR TO INFUSION PO ONE (11:00)
[2022-02-25] MEDS ORDERED: INFLIXIMAB BIOSIMILAR 600 MG in NS 190 ML IV ONE (11:00)
[2022-02-25] MEDS ORDERED: NS 1,000 ML IV SCH (11:00)
[2022-02-25 11:10] VITALS: BP 158/85
[2022-02-25 12:15] VITALS: BP 177/93
[2022-02-25 13:00] VITALS: BP 184/91
== END 2022-02-25 13:00 | disposition home or self-care (01) ==
LOC: M INFU 10:58
PROVIDERS: ATTEND Internal Medicine Gastroenterology
DX: K50.90 Crohn's disease, unspecified, without complications (principal)
CPT/HCPCS: 96413; Q5103

== ENCOUNTER → 2022-05-02 | Outpatient (CLI) | payer OTHER ==
[~2022-05-02] MED LIST changes: +ACETAMINOPHEN 650MG PO PRIOR TO INFUSION PO ONE; +ALBU2.5V10 INH; -ALBU83IN INH; +INFLIXIMAB BIOSIMILAR 600 MG in NS 190 ML IV ONE; +NS 1,000 ML IV SCH
[2022-05-02 13:20] VITALS: BP 182/104
[2022-05-02 14:00] VITALS: BP 183/101
[2022-05-02 14:25] VITALS: BP 182/100
[2022-05-02 16:07] LABS: BASO % 0.4 % (0.0-1.0); EOS % 0.2 % (0.0-3.0); HEMATOCRIT 48.8 % (36.0-47.0); HEMOGLOBIN 16.4 g/dl (12.0-15.5); LYMPH % 23.2 % (24.0-44.0); MEAN CORPUSCULAR HEMOGLOBIN 29.9 pg (27.0-33.0); MEAN CORPUSCULAR HGB CONC 33.6 g/dl (32.0-36.5); MEAN CORPUSCULAR VOLUME 88.9 fl (80.0-96.0); MONO # 0.8 10^3/uL (0.0-0.8); NEUTROPHILS # 5.6 10^3/uL (1.5-8.5); NEUTROPHILS % 65.8 % (36.0-66.0); PLATELET COUNT, AUTOMATED 206 10^3/uL (150-450); RED BLOOD COUNT 5.49 10^6/uL (4.00-5.40); WHITE BLOOD COUNT 8.4 10^3/uL (4.0-10.0)
[2022-05-02 17:33] LABS: ALBUMIN 4.1 GM/DL (3.2-5.2); ALT/SGPT 45 U/L (12-78); BILIRUBIN,TOTAL 0.5 MG/DL (0.2-1.0); BLOOD UREA NITROGEN 13 MG/DL (7-18); CALCIUM LEVEL 10.2 MG/DL (8.5-10.1); CARBON DIOXIDE LEVEL 27 MEQ/L (21-32); CHLORIDE LEVEL 107 MEQ/L (98-107); CREATININE FOR GFR 0.82 MG/DL (0.55-1.30); GLOMERULAR FILTRATION RATE > 60.0 (>51); GLUCOSE, FASTING 137 MG/DL (70-100); POTASSIUM SERUM 4.3 MEQ/L (3.5-5.1); SODIUM LEVEL 140 MEQ/L (136-145); TOTAL PROTEIN 8.1 GM/DL (6.4-8.2)
== END ==
LOC: M INFU 14:57
PROVIDERS: ATTEND Internal Medicine Gastroenterology
DX: K50.90 Crohn's disease, unspecified, without complications (principal)
CPT/HCPCS: 36415; 80053; 85025; 86480; 96413; Q5103

== ENCOUNTER → 2022-05-02 | Outpatient (REF) | payer OTHER ==
[~2022-05-02] MED LIST changes: -ACETAMINOPHEN 650MG PO PRIOR TO INFUSION PO ONE; -INFLIXIMAB BIOSIMILAR 600 MG in NS 190 ML IV ONE; -NS 1,000 ML IV SCH
[2022-05-02 21:19] LABS: APPEARANCE, URINE CLOUDY (CLEAR); BACTERIA, URINE AUTO 1+ (NEGATIVE); BILIRUBIN, URINE AUTO NEGATIVE (NEGATIVE); BLOOD, URINE BLOOD 1+ (NEGATIVE); COLOR, URINE YELLOW (YELLOW); GLUCOSE, URINE (UA) AUTO NEGATIVE (NEGATIVE); KETONE, URINE AUTO NEGATIVE (NEGATIVE); LEUKOCYTE ESTERASE, URINE AUTO 2+ (NEGATIVE); MUCUS, URINE SMALL (NEGATIVE); NITRITE, URINE AUTO NEGATIVE (NEGATIVE); PROTEIN, URINE AUTO NEGATIVE (NEGATIVE); RBC, URINE AUTO 1 /HPF (0-3); SQUAMOUS EPITHELIAL CELL UR AU 8 /HPF (0-6); UROBILINOGEN, URINE AUTO 0.2 mg/dL (0.0-2.0); WBC, URINE AUTO 4 /HPF (0-3)
== END ==
LOC: M LAB REF 19:56
PROVIDERS: ATTEND Physician Assistant
DX: N39.0 Urinary tract infection, site not specified (principal)

== ENCOUNTER → 2022-05-03 | Outpatient (REF) | payer OTHER | LOC: M LAB REF 09:43 | PROVIDERS: ATTEND Internal Medicine Gastroenterology | DX: K50.10 Crohn's disease of large intestine without complications (principal); R19.7 Diarrhea, unspecified ==

== ENCOUNTER → 2022-05-08 | Outpatient (CLI) | payer OTHER | LOC: M LAB 07:23 | PROVIDERS: ATTEND Internal Medicine Gastroenterology | DX: K50.10 Crohn's disease of large intestine without complications (principal) ==

== ENCOUNTER → 2022-05-22 | Outpatient (CLI) | payer OTHER | LOC: M WHC 08:03 | PROVIDERS: ATTEND Student in an Organized Health Care Education/Training Program | DX: Z12.31 Encounter for screening mammogram for malignant neoplasm of breast (principal) ==

== ENCOUNTER → 2022-06-26 | Outpatient (CLI) | payer OTHER ==
[~2022-06-26] MED LIST changes: +B-2100TA PO; +CETI10CH PO; +INFL10VL IV; +OMEG10002 PO; +PRESCAP PO; +VITA100093 PO
[2022-06-26 12:28] LABS: HEPATITIS C VIRUS ABY INDEX < 0.0 INDEX (<0.8); HIV 1&2 SCREEN CENTAUR NEGATIVE (NEGATIVE)
[2022-06-26 12:42] LABS: BLOOD UREA NITROGEN 14 MG/DL (7-18); CALCIUM LEVEL 9.7 MG/DL (8.5-10.1); CARBON DIOXIDE LEVEL 28 MEQ/L (21-32); CHLORIDE LEVEL 107 MEQ/L (98-107); CREATININE FOR GFR 0.93 MG/DL (0.55-1.30); GLOMERULAR FILTRATION RATE > 60.0 (>51); GLUCOSE, FASTING 117 MG/DL (70-100); POTASSIUM SERUM 4.9 MEQ/L (3.5-5.1); SODIUM LEVEL 139 MEQ/L (136-145)
== END ==
LOC: M PLALAB 08:12
PROVIDERS: ATTEND Student in an Organized Health Care Education/Training Program
DX: E55.9 Vitamin D deficiency, unspecified (principal); Z11.4 Encounter for screening for human immunodeficiency virus [HIV]; R73.03 Prediabetes; Z11.59 Encounter for screening for other viral diseases

== ENCOUNTER 2022-06-27 12:05 | Outpatient (CLI) | payer OTHER ==
[~2022-06-27] VITALS: Ht 180.3 cm; Wt 103.8 kg
[2022-06-27 12:00] VITALS: BP 164/90
[2022-06-27 12:20] VITALS: BP 163/91
[2022-06-27] MEDS ORDERED: INFLIXIMAB BIOSIMILAR 600 MG in NS 190 ML IV ONE (12:30)
[2022-06-27] MEDS ORDERED: NS 1,000 ML IV SCH (12:30)
[2022-06-27] MEDS ORDERED: ACETAMINOPHEN 650MG PO PRIOR TO INFUSION PO ONE (12:30)
[2022-06-27 13:15] VITALS: BP 155/90
== END 2022-06-27 13:20 ==
LOC: M INFU 12:05
PROVIDERS: ATTEND Internal Medicine Gastroenterology
DX: K50.90 Crohn's disease, unspecified, without complications (principal)
CPT/HCPCS: 96413; Q5103

== ENCOUNTER → 2022-07-07 | Outpatient (CLI) | payer OTHER | LOC: M LABSMTC 09:10 | PROVIDERS: ATTEND Anesthesiology | DX: Z20.828 Contact with and (suspected) exposure to other viral communicable diseases (principal); Z11.59 Encounter for screening for other viral diseases ==

== ENCOUNTER 2022-07-11 07:45 | Day surgery (SDC) | payer OTHER ==
[~2022-07-11] VITALS: Ht 180.3 cm; Wt 101.5 kg
[~2022-07-11 07:45] MED LIST changes: +NS 1,000 ML IV ONE
[2022-07-11 09:16] VITALS: BP 132/81
[2022-07-11] MEDS ORDERED: propofoL 200 MG/20 ML VIAL As Ordered ONE (09:32)
[2022-07-11] MEDS ORDERED: LIDOCAINE 2% 100MG/5ML SDV (FOR ANES.) As Ordered ONE (09:32)
== END 2022-07-11 09:23 | disposition home or self-care (01) ==
LOC: M OPP 07:45
PROVIDERS: ATTEND Internal Medicine Gastroenterology
DX: Z12.11 Encounter for screening for malignant neoplasm of colon (principal); K50.10 Crohn's disease of large intestine without complications; K62.4 Stenosis of anus and rectum; Z79.899 Other long term (current) drug therapy; Z79.51 Long term (current) use of inhaled steroids; I10 Essential (primary) hypertension

== ENCOUNTER → 2022-07-19 | Outpatient (REF) | payer OTHER ==
[~2022-07-19] MED LIST changes: -NS 1,000 ML IV ONE
== END ==
LOC: M LAB REF 16:24
PROVIDERS: ATTEND Physician Assistant
DX: J02.9 Acute pharyngitis, unspecified (principal)

== ENCOUNTER → 2022-08-12 | Outpatient (REF) | payer OTHER | LOC: M SFHCPLAZ 17:29 | PROVIDERS: ATTEND Physician Assistant | DX: R50.9 Fever, unspecified (principal) ==

== ENCOUNTER 2022-08-28 13:10 | Outpatient (CLI) | payer OTHER ==
[~2022-08-28] VITALS: Ht 180.3 cm; Wt 100.0 kg
[2022-08-28 13:10] VITALS: BP 144/64
[2022-08-28] MEDS ORDERED: NS 1,000 ML IV SCH (13:30)
[2022-08-28] MEDS ORDERED: INFLIXIMAB BIOSIMILAR 600 MG in NS 190 ML IV ONE (13:30)
[2022-08-28] MEDS ORDERED: ACETAMINOPHEN 650MG PO PRIOR TO INFUSION PO ONE (13:30)
[2022-08-28 14:23] VITALS: BP 138/80
[2022-08-28 15:25] VITALS: BP 140/71
== END 2022-08-28 15:25 | disposition home or self-care (01) ==
LOC: M INFU 13:10
PROVIDERS: ATTEND Internal Medicine Gastroenterology
DX: K50.90 Crohn's disease, unspecified, without complications (principal)
CPT/HCPCS: 96413; Q5103

== ENCOUNTER 2022-10-23 10:35 | Outpatient (CLI) | payer OTHER ==
[~2022-10-23] VITALS: Ht 180.3 cm; Wt 102.0 kg
[2022-10-23 10:35] VITALS: BP 132/80
[2022-10-23] MEDS ORDERED: INFLIXIMAB BIOSIMILAR 600 MG in NS 190 ML IV ONE (11:00)
[2022-10-23] MEDS ORDERED: NS 1,000 ML IV SCH (11:00)
[2022-10-23] MEDS ORDERED: ACETAMINOPHEN 650MG PO PRIOR TO INFUSION PO ONE (11:00)
[2022-10-23] MEDS ORDERED: LEVOTAB10 PO (11:02)
[2022-10-23 11:45] VITALS: BP 155/80
[2022-10-23 12:30] VITALS: BP 110/70
[2022-10-23 12:45] VITALS: BP 155/80
== END 2022-10-23 12:45 | disposition home or self-care (01) ==
LOC: M INFU 10:35
PROVIDERS: ATTEND Internal Medicine Gastroenterology
DX: K50.90 Crohn's disease, unspecified, without complications (principal)
CPT/HCPCS: 96413; Q5103

== ENCOUNTER 2022-12-18 10:30 | Outpatient (CLI) | payer OTHER ==
[~2022-12-18] VITALS: Ht 177.8 cm; Wt 100.0 kg
[2022-12-18 10:25] VITALS: BP 130/60
[~2022-12-18 10:30] MED LIST changes: +LEVOTAB10 PO; +MONT-5 PO; -SING10TA32 PO
[2022-12-18] MEDS ORDERED: NS 1,000 ML IV SCH (11:00)
[2022-12-18] MEDS ORDERED: INFLIXIMAB BIOSIMILAR 600 MG in NS 190 ML IV ONE (11:00)
[2022-12-18] MEDS ORDERED: ACETAMINOPHEN 650MG PO PRIOR TO INFUSION PO ONE (11:00)
[2022-12-18 11:42] VITALS: BP 140/80
[2022-12-18 12:40] VITALS: BP 144/76
== END 2022-12-18 12:40 | disposition home or self-care (01) ==
LOC: M INFU 10:30
PROVIDERS: ATTEND Internal Medicine Gastroenterology
DX: K50.90 Crohn's disease, unspecified, without complications (principal)
CPT/HCPCS: 96413; Q5103

== ENCOUNTER 2023-02-12 10:45 | Outpatient (CLI) | payer OTHER ==
[~2023-02-12] VITALS: Ht 180.3 cm; Wt 102.0 kg
[2023-02-12] MEDS ORDERED: ACETAMINOPHEN 650MG PO PRIOR TO INFUSION PO ONE (11:00)
[2023-02-12] MEDS ORDERED: NS 1,000 ML IV SCH (11:00)
[2023-02-12] MEDS ORDERED: INFLIXIMAB BIOSIMILAR 600 MG in NS 190 ML IV ONE (11:00)
[2023-02-12 11:05] VITALS: BP 130/80
[2023-02-12 12:00] VITALS: BP 132/80
[2023-02-12 12:50] VITALS: BP 128/70
== END 2023-02-12 12:50 | disposition home or self-care (01) ==
LOC: M INFU 10:45
PROVIDERS: ATTEND Internal Medicine Gastroenterology
DX: K50.90 Crohn's disease, unspecified, without complications (principal)
CPT/HCPCS: 96413; Q5103

== ENCOUNTER → 2023-03-28 | Outpatient (CLI) | payer OTHER ==
[2023-03-28 10:28] LABS: APPEARANCE, URINE CLOUDY (CLEAR); BACTERIA, URINE AUTO 1+ (NEGATIVE); BILIRUBIN, URINE AUTO NEGATIVE (NEGATIVE); BLOOD, URINE BLOOD NEGATIVE (NEGATIVE); COLOR, URINE AMBER (YELLOW); GLUCOSE, URINE (UA) AUTO NEGATIVE (NEGATIVE); KETONE, URINE AUTO NEGATIVE (NEGATIVE); LEUKOCYTE ESTERASE, URINE AUTO 3+ (NEGATIVE); MUCUS, URINE SMALL (NEGATIVE); NITRITE, URINE AUTO NEGATIVE (NEGATIVE); PROTEIN, URINE AUTO NEGATIVE (NEGATIVE); RBC, URINE AUTO 3 /HPF (0-3); SPECIFIC GRAVITY URINE AUTO 1.018 (1.002-1.035); SQUAMOUS EPITHELIAL CELL UR AU 3 /HPF (0-6); TRANSITIONAL EPITHELIAL AUTO 1 /HPF; UROBILINOGEN, URINE AUTO 0.2 mg/dL (0.0-2.0); WBC, URINE AUTO 19 /HPF (0-3)
[2023-03-28 10:30] LABS: BASO % 0.5 % (0.0-1.0); EOS # 0.1 10^3/uL (0.0-0.5); EOS % 0.9 % (0.0-3.0); HEMATOCRIT 45.2 % (36.0-47.0); HEMOGLOBIN 15.2 g/dl (12.0-15.5); LYMPH # 2.6 10^3/uL (1.5-5.0); LYMPH % 40.9 % (24.0-44.0); MEAN CORPUSCULAR HEMOGLOBIN 30.7 pg (27.0-33.0); MEAN CORPUSCULAR HGB CONC 33.6 g/dl (32.0-36.5); MEAN CORPUSCULAR VOLUME 91.3 fl (80.0-96.0); MONO # 0.7 10^3/uL (0.0-0.8); MONO % 11.1 % (2.0-8.0); NEUTROPHILS % 46.3 % (36.0-66.0); PLATELET COUNT, AUTOMATED 177 10^3/uL (150-450); RED BLOOD COUNT 4.95 10^6/uL (4.00-5.40); WHITE BLOOD COUNT 6.4 10^3/uL (4.0-10.0)
[2023-03-28 10:32] LABS: ALBUMIN 3.8 G/DL (3.2-5.2); ALKALINE PHOSPHATASE 97 U/L (46-116); ALT/SGPT 39 U/L (7.0-40); AST/SGOT 15 U/L (<34); BILIRUBIN,TOTAL 0.6 MG/DL (0.3-1.2); BLOOD UREA NITROGEN 16 MG/DL (9-23); CALCIUM LEVEL 8.8 MG/DL (8.5-10.1); CARBON DIOXIDE LEVEL 30 MMOL/L (20-31); CHLORIDE LEVEL 104 MMOL/L (98-107); CREATININE FOR GFR 0.73 MG/DL (0.55-1.30); GLOMERULAR FILTRATION RATE > 60.0 (>51); GLUCOSE, FASTING 105 MG/DL (60-100); POTASSIUM SERUM 4.3 MMOL/L (3.5-5.1); SODIUM LEVEL 140 MMOL/L (136-145); TOTAL PROTEIN 6.8 G/DL (5.7-8.2)
[2023-03-28 10:44] LABS: HEMOGLOBIN A1c 5.6 % (4.0-6.0)
[2023-03-28 11:03] LABS: CREATININE, URINE 90.8 MG/DL
[2023-03-28 11:04] LABS: MAU/CREAT RATIO 17.6 MCG/MG (0.0-30.0)
== END ==
LOC: M PLALAB 08:04
PROVIDERS: ATTEND Student in an Organized Health Care Education/Training Program
DX: R30.0 Dysuria (principal); R73.03 Prediabetes

== ENCOUNTER → 2023-04-04 | Outpatient (CLI) | payer OTHER ==
[2023-04-04 11:30] LABS: ALBUMIN 3.7 G/DL (3.2-5.2); ALKALINE PHOSPHATASE 93 U/L (46-116); ALT/SGPT 30 U/L (7.0-40); AST/SGOT < 8 U/L (<34); BILIRUBIN,TOTAL 0.6 MG/DL (0.3-1.2); BLOOD UREA NITROGEN 14 MG/DL (9-23); CALCIUM LEVEL 9.2 MG/DL (8.5-10.1); CARBON DIOXIDE LEVEL 30 MMOL/L (20-31); CHLORIDE LEVEL 105 MMOL/L (98-107); CREATININE FOR GFR 0.75 MG/DL (0.55-1.30); GLOMERULAR FILTRATION RATE > 60.0 (>51); GLUCOSE, FASTING 96 MG/DL (60-100); POTASSIUM SERUM 4.8 MMOL/L (3.5-5.1); SODIUM LEVEL 140 MMOL/L (136-145); TOTAL PROTEIN 6.8 G/DL (5.7-8.2)
[2023-04-04 11:31] LABS: BASO % 0.5 % (0.0-1.0); EOS # 0.1 10^3/uL (0.0-0.5); HEMATOCRIT 45.4 % (36.0-47.0); LYMPH # 2.4 10^3/uL (1.5-5.0); LYMPH % 38.1 % (24.0-44.0); MEAN CORPUSCULAR HEMOGLOBIN 30.4 pg (27.0-33.0); MEAN CORPUSCULAR VOLUME 91.9 fl (80.0-96.0); MONO # 0.8 10^3/uL (0.0-0.8); MONO % 12.3 % (2.0-8.0); NEUTROPHILS % 47.9 % (36.0-66.0); PLATELET COUNT, AUTOMATED 189 10^3/uL (150-450); RED BLOOD COUNT 4.94 10^6/uL (4.00-5.40); WHITE BLOOD COUNT 6.2 10^3/uL (4.0-10.0)
[2023-04-04 11:33] LABS: VITAMIN B12 LEVEL 330 PG/ML (211-911)
[2023-04-04 11:50] LABS: HEPATITIS B SURFACE ANTIGEN NEGATIVE (NEGATIVE)
== END ==
LOC: M PLALAB 07:57
PROVIDERS: ATTEND Internal Medicine Gastroenterology
DX: K50.10 Crohn's disease of large intestine without complications (principal)

== ENCOUNTER → 2023-05-28 | Outpatient (CLI) | payer OTHER | LOC: M WHC 12:21 | PROVIDERS: ATTEND Student in an Organized Health Care Education/Training Program | DX: Z12.31 Encounter for screening mammogram for malignant neoplasm of breast (principal) ==

== ENCOUNTER 2023-06-04 10:15 | Outpatient (CLI) | payer OTHER ==
[~2023-06-04] VITALS: Ht 180.3 cm; Wt 100.0 kg
[2023-06-04 10:20] VITALS: BP 138/80; O2SAT 97
[2023-06-04] MEDS ORDERED: NS 1,000 ML IV SCH (11:00)
[2023-06-04] MEDS ORDERED: INFLIXIMAB BIOSIMILAR 500 MG in NS 200 ML IV ONE (11:00)
[2023-06-04] MEDS ORDERED: ACETAMINOPHEN 650MG PO PRIOR TO INFUSION PO ONE (11:00)
[2023-06-04 11:40] VITALS: BP 150/89; TEMP 97.9; O2SAT 99
[2023-06-04 12:28] VITALS: BP 120/76; O2SAT 100
== END 2023-06-04 12:30 ==
LOC: M INFU 10:15
PROVIDERS: ATTEND Internal Medicine Gastroenterology
DX: K51.90 Ulcerative colitis, unspecified, without complications (principal)
CPT/HCPCS: 96413; 96415; Q5103

== ENCOUNTER 2023-07-30 10:53 | Outpatient (CLI) | payer OTHER ==
[~2023-07-30] VITALS: Ht 180.3 cm; Wt 104.2 kg
[2023-07-30 10:55] VITALS: BP 138/85; O2SAT 100
[2023-07-30] MEDS ORDERED: INFLIXIMAB BIOSIMILAR 500 MG in NS 200 ML IV ONE (11:30)
[2023-07-30] MEDS ORDERED: ACETAMINOPHEN 650MG PO PRIOR TO INFUSION PO ONE (11:30)
[2023-07-30] MEDS ORDERED: NS 1,000 ML IV SCH (11:30)
[2023-07-30 13:15] VITALS: BP 138/88; O2SAT 100
== END 2023-07-30 13:15 ==
LOC: M INFU 10:53
PROVIDERS: ATTEND Internal Medicine Gastroenterology
DX: K50.90 Crohn's disease, unspecified, without complications (principal)
CPT/HCPCS: 96413; Q5103

== ENCOUNTER 2023-09-24 10:30 | Outpatient (CLI) | payer OTHER ==
[~2023-09-24] VITALS: Ht 180.3 cm; Wt 102.0 kg
[2023-09-24 10:30] VITALS: BP 142/86; O2SAT 100
[2023-09-24] MEDS ORDERED: ACETAMINOPHEN TAB 650MG DOSE (2X325MG) PO ONE (10:45)
[2023-09-24] MEDS ORDERED: NS 1,000 ML IV SCH (11:00)
[2023-09-24] MEDS ORDERED: INFLIXIMAB BIOSIMILAR 500 MG in NS 200 ML IV ONE (11:00)
[2023-09-24 11:23] VITALS: BP 144/68; O2SAT 98
[2023-09-24 12:05] VITALS: BP 142/88; O2SAT 100
== END 2023-09-24 12:05 | disposition home or self-care (01) ==
LOC: M INFU 10:30
PROVIDERS: ATTEND Internal Medicine Gastroenterology
DX: K50.90 Crohn's disease, unspecified, without complications (principal)
CPT/HCPCS: 96413; Q5103

== ENCOUNTER → 2023-10-17 | Outpatient (REF) | payer OTHER | LOC: M SFHCPLAZ 11:24 | PROVIDERS: ATTEND Family Medicine | DX: Z53.9 Procedure and treatment not carried out, unspecified reason (principal); I10 Essential (primary) hypertension; E55.9 Vitamin D deficiency, unspecified; R73.03 Prediabetes; E78.5 Hyperlipidemia, unspecified ==

== ENCOUNTER → 2023-10-29 | Outpatient (CLI) | payer OTHER ==
[2023-10-29 10:40] LABS: BLOOD UREA NITROGEN 17 MG/DL (9-23); CALCIUM LEVEL 9.5 MG/DL (8.5-10.1); CARBON DIOXIDE LEVEL 28 MMOL/L (20-31); CHLORIDE LEVEL 104 MMOL/L (98-107); CHOLESTEROL LEVEL 236 MG/DL (<200); CHOLESTEROL RISK RATIO 3.52 (<5); CREATININE FOR GFR 0.71 MG/DL (0.55-1.30); GLOMERULAR FILTRATION RATE > 60.0 (>51); GLUCOSE, FASTING 107 MG/DL (60-100); LDL CHOLESTEROL 139.6 MG/DL (<100); POTASSIUM SERUM 4.4 MMOL/L (3.5-5.1); SODIUM LEVEL 136 MMOL/L (136-145); TRIGLYCERIDES LEVEL 147 MG/DL (<150)
[2023-10-29 10:42] LABS: TOTAL 25(OH) VITAMIN D 32.2 NG/ML (20.0-100.0)
[2023-10-29 11:03] LABS: HEMOGLOBIN A1c 5.6 % (4.0-6.0)
== END ==
LOC: M PLALAB 07:59
PROVIDERS: ATTEND Student in an Organized Health Care Education/Training Program
DX: I10 Essential (primary) hypertension (principal); E55.9 Vitamin D deficiency, unspecified; R73.03 Prediabetes; E78.5 Hyperlipidemia, unspecified

== ENCOUNTER 2023-11-19 10:16 | Outpatient (CLI) | payer OTHER ==
[~2023-11-19] VITALS: Ht 180.3 cm; Wt 102.2 kg
[2023-11-19 10:25] VITALS: BP 138/70; O2SAT 100
[2023-11-19] MEDS ORDERED: NS 1,000 ML IV SCH (10:40)
[2023-11-19] MEDS: ACETAMINOPHEN 650MG PO PRIOR TO INFUSION PO ONE (10:43)
[2023-11-19] MEDS: INFLIXIMAB BIOSIMILAR 500 MG in NS 200 ML IV ONE (11:03)
[2023-11-19 12:05] VITALS: BP 130/88; O2SAT 100
== END 2023-11-19 12:05 ==
LOC: M INFU 10:16
PROVIDERS: ATTEND Internal Medicine Gastroenterology
DX: K50.90 Crohn's disease, unspecified, without complications (principal)
CPT/HCPCS: 96413; Q5103

== ENCOUNTER → 2023-12-19 | Outpatient (CLI) | payer OTHER | LOC: M WUC 08:32 | PROVIDERS: ATTEND Nurse Practitioner Family | DX: M25.561 Pain in right knee (principal); W01.10XA Fall on same level from slipping, tripping and stumbling with subsequent striking against unspecified object, initial encounter ==

== ENCOUNTER 2024-01-14 11:15 | Outpatient (CLI) | payer OTHER ==
[~2024-01-14] VITALS: Ht 180.3 cm; Wt 104.5 kg
[~2024-01-14 11:15] MED LIST changes: +NS 1,000 ML IV SCH
[2024-01-14] MEDS: ACETAMINOPHEN 650MG PO PRIOR TO INFUSION PO ONE (11:20)
[2024-01-14 11:32] VITALS: BP 148/90; O2SAT 100
[2024-01-14] MEDS: INFLIXIMAB BIOSIMILAR 500 MG in NS 200 ML IV ONE (11:59)
[2024-01-14 12:30] VITALS: BP 128/80; O2SAT 100
[2024-01-14 13:07] VITALS: BP 140/80; O2SAT 100
[2024-01-14 13:09] VITALS: BP 140/80; TEMP 36.8; O2SAT 100
== END 2024-01-14 13:10 ==
LOC: M INFU 11:15
PROVIDERS: ATTEND Internal Medicine Gastroenterology
DX: K50.90 Crohn's disease, unspecified, without complications (principal)
CPT/HCPCS: 96413; Q5103

== ENCOUNTER → 2024-02-21 | Outpatient (REF) | payer OTHER ==
[~2024-02-21] MED LIST changes: -NS 1,000 ML IV SCH
== END ==
LOC: M LAB REF 17:16
PROVIDERS: ATTEND Physician Assistant Medical
DX: B34.9 Viral infection, unspecified (principal)

== ENCOUNTER 2024-03-10 10:10 | Outpatient (CLI) | payer OTHER ==
[~2024-03-10] VITALS: Ht 180.3 cm; Wt 109.0 kg
[2024-03-10 10:25] VITALS: BP 130/80; O2SAT 100
[2024-03-10] MEDS ORDERED: NS 1,000 ML IV SCH (10:30)
[2024-03-10] MEDS: ACETAMINOPHEN TAB 650MG DOSE (2X325MG) PO ONE (10:44)
[2024-03-10] MEDS: INFLIXIMAB BIOSIMILAR 500 MG in NS 200 ML IV ONE (11:03)
[2024-03-10 12:03] VITALS: BP 141/80; O2SAT 100
== END 2024-03-10 12:15 | disposition home or self-care (01) ==
LOC: M INFU 10:10
PROVIDERS: ATTEND Internal Medicine Gastroenterology
DX: K50.919 Crohn's disease, unspecified, with unspecified complications (principal)
CPT/HCPCS: 96413; Q5103

== ENCOUNTER → 2024-04-30 | Outpatient (REF) | payer OTHER | LOC: M LAB REF 16:10 | PROVIDERS: ATTEND Physician Assistant Medical | DX: J02.9 Acute pharyngitis, unspecified (principal) ==

== ENCOUNTER → 2024-05-04 | Outpatient (CLI) | payer OTHER | LOC: M WHC 11:18 | DX: Z12.31 Encounter for screening mammogram for malignant neoplasm of breast (principal); Z53.9 Procedure and treatment not carried out, unspecified reason ==

== ENCOUNTER 2024-05-05 10:30 | Outpatient (CLI) | payer OTHER ==
[~2024-05-05] VITALS: Ht 180.3 cm; Wt 101.4 kg
[~2024-05-05 10:30] MED LIST changes: +ACETAMINOPHEN 650MG PO PRIOR TO INFUSION PO ONE; +NS 1,000 ML IV SCH
[2024-05-05 10:40] VITALS: BP 128/70; O2SAT 100
[2024-05-05] MEDS: INFLIXIMAB BIOSIMILAR 500 MG in NS 200 ML IV ONE (11:14)
== END 2024-05-05 12:25 ==
LOC: M INFU 10:30
PROVIDERS: ATTEND Internal Medicine Gastroenterology
DX: K50.90 Crohn's disease, unspecified, without complications (principal)
CPT/HCPCS: 96413; Q5103

== ENCOUNTER → 2024-05-19 | Outpatient (CLI) | payer OTHER ==
[~2024-05-19] MED LIST changes: -ACETAMINOPHEN 650MG PO PRIOR TO INFUSION PO ONE; -NS 1,000 ML IV SCH
[2024-05-21 12:47] LABS: QuantiFERON-TB Gold Plus NEGATIVE (NEGATIVE)
== END ==
LOC: M PLALAB 10:33
PROVIDERS: ATTEND Internal Medicine Gastroenterology
DX: K50.10 Crohn's disease of large intestine without complications (principal)

== ENCOUNTER → 2024-07-08 | Outpatient (REF) | payer OTHER | LOC: M LAB REF 17:28 | PROVIDERS: ATTEND Internal Medicine Gastroenterology | DX: K50.10 Crohn's disease of large intestine without complications (principal) ==

== ENCOUNTER 2024-07-15 14:16 | Outpatient (CLI) | payer OTHER ==
[~2024-07-15] VITALS: Ht 180.3 cm; Wt 100.0 kg
[2024-07-15 14:20] VITALS: BP 140/90; O2SAT 100
[2024-07-15] MEDS ORDERED: NS 1,000 ML IV SCH (14:30)
[2024-07-15] MEDS: INFLIXIMAB BIOSIMILAR 500 MG in NS 200 ML IV ONE (15:15)
[2024-07-15 16:19] VITALS: BP 130/82; O2SAT 96
== END 2024-07-15 16:20 ==
LOC: M INFU 14:16
PROVIDERS: ATTEND Internal Medicine Gastroenterology
DX: K50.90 Crohn's disease, unspecified, without complications (principal)
CPT/HCPCS: 96413; Q5103

== ENCOUNTER 2024-09-08 10:10 | Outpatient (CLI) | payer OTHER ==
[~2024-09-08] VITALS: Ht 180.3 cm; Wt 99.0 kg
[2024-09-08] MEDS ORDERED: NS 1,000 ML IV SCH (10:30)
[2024-09-08] MEDS: ACETAMINOPHEN 650MG PO PRIOR TO INFUSION PO ONE (11:01)
[2024-09-08] MEDS: INFLIXIMAB BIOSIMILAR 500 MG in NS 200 ML IV ONE (11:13)
[2024-09-08 12:17] VITALS: BP 148/70; O2SAT 97
== END 2024-09-08 12:20 ==
LOC: M INFU 10:10
PROVIDERS: ATTEND Internal Medicine Gastroenterology
DX: K50.90 Crohn's disease, unspecified, without complications (principal)
CPT/HCPCS: 96413; Q5103

== ENCOUNTER 2024-11-03 09:48 | Outpatient (CLI) | payer OTHER ==
[~2024-11-03] VITALS: Ht 180.3 cm; Wt 100.0 kg
[2024-11-03 10:00] VITALS: BP 154/80; O2SAT 100
[2024-11-03] MEDS ORDERED: NS (Normal Saline) 0.9% 1,000 ML IV SCH (10:00)
[2024-11-03] MEDS ORDERED: ACETAMINOPHEN 650MG PO PRIOR TO INFUSION PO ONE (10:00)
[2024-11-03] MEDS: INFLIXIMAB BIOSIMILAR 500 MG in NS 200 ML IV ONE (10:37)
[2024-11-03 11:35] VITALS: BP 132/80; O2SAT 100
== END 2024-11-03 11:40 | disposition home or self-care (01) ==
LOC: M INFU 09:48
PROVIDERS: ATTEND Internal Medicine Gastroenterology
DX: K50.90 Crohn's disease, unspecified, without complications (principal)
CPT/HCPCS: 96413; Q5103

== ENCOUNTER → 2024-11-27 | Outpatient (REF) | payer OTHER | LOC: M SFHCPLAZ 20:02 | PROVIDERS: ATTEND Family Medicine | DX: Z53.9 Procedure and treatment not carried out, unspecified reason (principal) ==

== ENCOUNTER → 2024-12-10 | Outpatient (CLI) | payer OTHER ==
[2024-12-10 10:53] LABS: HEMATOCRIT 42.9 % (36.0-47.0); HEMOGLOBIN 14.4 g/dl (12.0-15.5); MEAN CORPUSCULAR HEMOGLOBIN 30.7 pg (27.0-33.0); MEAN CORPUSCULAR HGB CONC 33.6 g/dl (32.0-36.5); MEAN CORPUSCULAR VOLUME 91.5 fl (80.0-96.0); PLATELET COUNT, AUTOMATED 220 10^3/uL (150-450); RED BLOOD COUNT 4.69 10^6/uL (4.00-5.40)
[2024-12-10 10:59] LABS: ALBUMIN 3.6 G/DL (3.2-5.2); ALKALINE PHOSPHATASE 79 U/L (35-104); ALT/SGPT 34 U/L (7.0-40); AST/SGOT 15 U/L (<34); BILIRUBIN,TOTAL 0.6 MG/DL (0.3-1.2); BLOOD UREA NITROGEN 13 MG/DL (9-23); CALCIUM LEVEL 9.4 MG/DL (8.5-10.1); CARBON DIOXIDE LEVEL 31 MMOL/L (20-31); CHLORIDE LEVEL 106 MMOL/L (98-107); CHOLESTEROL LEVEL 197 MG/DL (<200); CHOLESTEROL RISK RATIO 3.02 (<5); CREATININE FOR GFR 0.72 MG/DL (0.55-1.30); GLOMERULAR FILTRATION RATE > 60.0 (>51); GLUCOSE, FASTING 108 MG/DL (60-100); HDL CHOLESTEROL 65.1 MG/DL (>40); LDL CHOLESTEROL 111.9 MG/DL (<100); NON-HDL-C 131.9 MG/DL; POTASSIUM SERUM 5.1 MMOL/L (3.5-5.1); SODIUM LEVEL 141 MMOL/L (136-145); TOTAL PROTEIN 7.1 G/DL (5.7-8.2); TRIGLYCERIDES LEVEL 100 MG/DL (<150)
[2024-12-10 11:03] LABS: FOLATE 17.4 NG/ML (>5.4); VITAMIN B12 LEVEL 480 PG/ML (211-911)
[2024-12-10 11:04] LABS: THYROID STIMULATING HORMONE 1.796 uIU/ML (0.55-4.78)
[2024-12-10 11:09] LABS: HEMOGLOBIN A1c 5.6 % (4.0-6.0)
[2024-12-10 11:34] LABS: HIV 1&2 SCREEN NEGATIVE (NEGATIVE)
[2024-12-10 11:42] LABS: HEPATITIS C VIRUS ABY INDEX 0.11 INDEX (<0.8)
[2024-12-10 11:51] LABS: FREE T4 1.34 NG/DL (0.89-1.76)
== END ==
LOC: M PLALAB 08:03
DX: R53.82 Chronic fatigue, unspecified (principal)

== ENCOUNTER → 2024-12-15 | Outpatient (CLI) | payer OTHER | LOC: M WHC 13:54 | DX: Z12.31 Encounter for screening mammogram for malignant neoplasm of breast (principal) ==

== ENCOUNTER 2024-12-29 10:00 | Outpatient (CLI) | payer OTHER ==
[~2024-12-29] VITALS: Ht 180.3 cm; Wt 100.0 kg
[~2024-12-29 10:00] MED LIST changes: +ACETAMINOPHEN 650MG PO PRIOR TO INFUSION PO ONE; +NS (Normal Saline) 0.9% 1,000 ML IV SCH
[2024-12-29 10:10] VITALS: BP 152/80; O2SAT 97
[2024-12-29] MEDS: INFLIXIMAB BIOSIMILAR 500 MG in NS 200 ML IV ONE (11:12)
[2024-12-29 11:30] VITALS: BP 152/88; O2SAT 100
[2024-12-29 12:20] VITALS: BP 140/88; O2SAT 100
== END 2024-12-29 12:20 ==
LOC: M INFU 10:00
PROVIDERS: ATTEND Internal Medicine Gastroenterology
DX: K50.90 Crohn's disease, unspecified, without complications (principal)
CPT/HCPCS: 96413; Q5103

== ENCOUNTER 2025-02-23 09:55 | Outpatient (CLI) | payer OTHER ==
[~2025-02-23] VITALS: Ht 177.8 cm; Wt 101.7 kg
[~2025-02-23 09:55] MED LIST changes: -ACETAMINOPHEN 650MG PO PRIOR TO INFUSION PO ONE; -NS (Normal Saline) 0.9% 1,000 ML IV SCH
[2025-02-23] MEDS ORDERED: NS (Normal Saline) 0.9% 1,000 ML IV SCH (10:00)
[2025-02-23] MEDS ORDERED: ACETAMINOPHEN 650MG PO PRIOR TO INFUSION PO ONE (10:00)
[2025-02-23 10:05] VITALS: BP 132/70; O2SAT 97
[2025-02-23] MEDS: INFLIXIMAB BIOSIMILAR 500 MG in NS 200 ML IV ONE (10:49)
[2025-02-23 11:22] VITALS: BP 144/86; O2SAT 100
[2025-02-23 12:00] VITALS: BP 150/84; O2SAT 100
[2025-02-25] MEDS ORDERED: MIRA3350 PO (10:03)
== END 2025-02-23 12:00 | disposition home or self-care (01) ==
LOC: M INFU 09:55
PROVIDERS: ATTEND Internal Medicine Gastroenterology
DX: K50.90 Crohn's disease, unspecified, without complications (principal)
CPT/HCPCS: 96413; Q5103

== ENCOUNTER 2025-04-20 09:58 | Outpatient (CLI) | payer OTHER, SELFPAY ==
[~2025-04-20] VITALS: Ht 180.3 cm; Wt 100.9 kg
[~2025-04-20 09:58] MED LIST changes: +MIRA3350 PO
[2025-04-20] MEDS ORDERED: NS (Normal Saline) 0.9% 1,000 ML IV SCH (10:00)
[2025-04-20 10:10] VITALS: BP 132/80; O2SAT 100
[2025-04-20] MEDS: ACETAMINOPHEN 650MG PO PRIOR TO INFUSION PO ONE (10:31)
[2025-04-20] MEDS: INFLIXIMAB BIOSIMILAR 500 MG in NS 200 ML IV ONE (11:08)
[2025-04-20 12:15] VITALS: BP 114/81; O2SAT 98
== END 2025-04-20 12:20 ==
LOC: M INFU 09:58
PROVIDERS: ATTEND Internal Medicine Gastroenterology
DX: K50.90 Crohn's disease, unspecified, without complications (principal)
CPT/HCPCS: 96413; Q5103

== ENCOUNTER → 2025-05-31 | Outpatient (CLI) | payer OTHER | LOC: M LAB 12:06 | PROVIDERS: ATTEND Internal Medicine Gastroenterology | DX: K50.10 Crohn's disease of large intestine without complications (principal) ==

== ENCOUNTER → 2025-06-02 | Outpatient (REF) | payer OTHER ==
[2025-06-02 11:27] LABS: APPEARANCE, URINE CLOUDY (CLEAR); BACTERIA, URINE AUTO 1+ (NEGATIVE); BILIRUBIN, URINE AUTO NEGATIVE (NEGATIVE); BLOOD, URINE BLOOD 3+ (NEGATIVE); GLUCOSE, URINE (UA) AUTO NEGATIVE (NEGATIVE); KETONE, URINE AUTO NEGATIVE (NEGATIVE); LEUKOCYTE ESTERASE, URINE AUTO 3+ (NEGATIVE); MUCUS, URINE SMALL (NEGATIVE); NITRITE, URINE AUTO NEGATIVE (NEGATIVE); PROTEIN, URINE AUTO 2+ mg/dL (NEGATIVE); RBC, URINE AUTO 10 /HPF (0-3); SPECIFIC GRAVITY URINE AUTO 1.006 (1.002-1.035); SQUAMOUS EPITHELIAL CELL UR AU 1 /HPF (0-6); UROBILINOGEN, URINE AUTO 0.2 mg/dL (0.0-2.0); WBC, URINE AUTO TNTC /HPF (0-3)
== END ==
LOC: M SFHCPLAZ 10:25
PROVIDERS: ATTEND Physician Assistant Medical
DX: R30.0 Dysuria (principal)

== ENCOUNTER 2025-06-15 09:17 | Outpatient (CLI) | payer OTHER ==
[~2025-06-15] VITALS: Ht 180.3 cm; Wt 100.0 kg
[2025-06-15] MEDS ORDERED: NS (Normal Saline) 0.9% 1,000 ML IV SCH (10:00)
[2025-06-15] MEDS: INFLIXIMAB BIOSIMILAR 500 MG in NS 200 ML IV ONE (10:03)
[2025-06-15] MEDS: ACETAMINOPHEN 650MG PO PRIOR TO INFUSION PO ONE (10:07)
[2025-06-15 10:35] VITALS: BP 130/70; O2SAT 100
[2025-06-15 11:05] VITALS: BP 136/80; O2SAT 97
== END 2025-06-15 11:05 | disposition home or self-care (01) ==
LOC: M INFU 09:17
PROVIDERS: ATTEND Internal Medicine Gastroenterology
DX: K50.90 Crohn's disease, unspecified, without complications (principal)
CPT/HCPCS: 96413; Q5103

== ENCOUNTER → 2025-07-17 | Outpatient (REF) | payer OTHER ==
[2025-07-17 17:53] LABS: APPEARANCE, URINE CLOUDY (CLEAR); BACTERIA, URINE AUTO 2+ (NEGATIVE); BILIRUBIN, URINE AUTO NEGATIVE (NEGATIVE); BLOOD, URINE BLOOD 2+ (NEGATIVE); GLUCOSE, URINE (UA) AUTO NEGATIVE (NEGATIVE); KETONE, URINE AUTO NEGATIVE (NEGATIVE); LEUKOCYTE ESTERASE, URINE AUTO 3+ (NEGATIVE); MUCUS, URINE SMALL (NEGATIVE); NITRITE, URINE AUTO POSITIVE (NEGATIVE); PROTEIN, URINE AUTO NEGATIVE (NEGATIVE); RBC, URINE AUTO 6 /HPF (0-3); SPECIFIC GRAVITY URINE AUTO 1.013 (1.002-1.035); SQUAMOUS EPITHELIAL CELL UR AU 1 /HPF (0-6); UROBILINOGEN, URINE AUTO 0.2 mg/dL (0.0-2.0); WBC, URINE AUTO 13 /HPF (0-3)
== END ==
LOC: M LAB REF 17:19
DX: N39.0 Urinary tract infection, site not specified (principal)

== ENCOUNTER 2025-08-10 09:42 | Outpatient (CLI) | payer OTHER ==
[~2025-08-10] VITALS: Ht 180.3 cm; Wt 100.7 kg
[2025-08-10] MEDS ORDERED: NS (Normal Saline) 0.9% 1,000 ML IV SCH (10:00)
[2025-08-10] MEDS ORDERED: ACETAMINOPHEN 650MG PO PRIOR TO INFUSION PO ONE (10:00)
[2025-08-10] MEDS: INFLIXIMAB BIOSIMILAR 500 MG in NS 200 ML IV ONE (10:21)
[2025-08-10 11:30] VITALS: BP 168/88; O2SAT 99
== END 2025-08-10 11:30 | disposition home or self-care (01) ==
LOC: M INFU 09:42
PROVIDERS: ATTEND Internal Medicine Gastroenterology
DX: K50.90 Crohn's disease, unspecified, without complications (principal)
CPT/HCPCS: 96413; Q5103

== ENCOUNTER 2025-08-31 11:16 | Day surgery (SDC) | payer OTHER ==
[~2025-08-31] VITALS: Ht 180.3 cm; Wt 99.0 kg
[~2025-08-31 11:16] MED LIST changes: +LIDOCAINE 3.5% 1 ML OPHTH TOPICAL GEL OU ONE; +MIDAZOLAM INJ 2 MG/2 ML VIAL As Ordered ONE
[2025-08-31] MEDS: POVIDONE-IODINE 5% OPHTH PREP SOL 30ML As Ordered ONE (13:30)
[2025-08-31] MEDS: LIDOCAINE 2% W/EPINEPHrine 20 ML VIAL **PRES FREE As Ordered ONE (13:35)
[2025-08-31] MEDS: TOBRADEX OPHTH OINT 3.5 GM As Ordered ONE (13:36)
[2025-08-31 13:38] VITALS: BP 135/89; TEMP 97.2; O2SAT 99
== END 2025-08-31 14:02 | disposition home or self-care (01) ==
LOC: M SDC 11:16
PROVIDERS: ATTEND Ophthalmology
DX: D23.122 Other benign neoplasm of skin of left lower eyelid, including canthus (principal); I10 Essential (primary) hypertension; K50.90 Crohn's disease, unspecified, without complications; J45.909 Unspecified asthma, uncomplicated; Z79.899 Other long term (current) drug therapy; Z79.620 Long term (current) use of immunosuppressive biologic
CPT/HCPCS: 67840; 88305; J2250; J3010

== ENCOUNTER 2025-10-12 08:54 | Outpatient (CLI) | payer OTHER ==
[~2025-10-12] VITALS: Ht 180.3 cm; Wt 100.0 kg
[~2025-10-12 08:54] MED LIST changes: -LIDOCAINE 3.5% 1 ML OPHTH TOPICAL GEL OU ONE; -MIDAZOLAM INJ 2 MG/2 ML VIAL As Ordered ONE
[2025-10-12 09:30] VITALS: BP 138/80; O2SAT 99
[2025-10-12] MEDS ORDERED: ACETAMINOPHEN 650MG PO PRIOR TO INFUSION PO ONE (09:30)
[2025-10-12] MEDS ORDERED: NS (Normal Saline) 0.9% 1,000 ML IV SCH (09:30)
[2025-10-12] MEDS: INFLIXIMAB BIOSIMILAR 500 MG in NS 200 ML IV ONE (09:50)
[2025-10-12 11:05] VITALS: BP 168/78; O2SAT 100
== END 2025-10-12 11:05 | disposition home or self-care (01) ==
LOC: M INFU 08:54
PROVIDERS: ATTEND Internal Medicine Gastroenterology
DX: K50.10 Crohn's disease of large intestine without complications (principal)
CPT/HCPCS: 96413; Q5103